=== PATIENT | female | born 1990 | race Native Hawaiian/Other Pacific Islander ===

== ENCOUNTER 2021-11-13 13:10 | Emergency (ER) | payer OTHER ==
[~2021-11-13] VITALS: Ht 154.9 cm; Wt 70.8 kg
[2021-11-13 13:18] VITALS: TEMP 99.4
[2021-11-13] MEDS ORDERED: KEPPRA750 MG PO (14:10)
[2021-11-13] MEDS ORDERED: PREDNISONE20 MG PO (14:10)
[2021-11-13 14:12] VITALS: BP 125/80
== END 2021-11-13 14:12 | disposition home or self-care (01) ==
LOC: ED 13:10
DX: R56.9 Unspecified convulsions (principal); S50.01XA Contusion of right elbow, initial encounter; W01.198A Fall on same level from slipping, tripping and stumbling with subsequent striking against other object, initial encounter; Y92.89 Other specified places as the place of occurrence of the external cause
CPT/HCPCS: 99282

== ENCOUNTER 2021-12-20 21:30 | Emergency (ER) | payer OTHER ==
[~2021-12-20] VITALS: Ht 157.5 cm; Wt 63.5 kg
[~2021-12-20 21:30] MED LIST: KEPPRA750 MG PO; PREDNISONE20 MG PO
[2021-12-20 22:32] LABS: POTASSIUM 3.6 mmol/L (3.6-5.2)
[2021-12-20 22:37] LABS: PLATELET COUNT 184 K/uL (152-353)
[2021-12-20 23:14] LABS: PARTIAL THROMBOPLASTIN TIME 20.3 SECONDS (24.5-33.6)
[2021-12-20 23:20] VITALS: BP 128/77; TEMP 97.8
== END 2021-12-20 23:20 | disposition home or self-care (01) ==
LOC: ED 21:30
PROVIDERS: Hospitalist
DX: R07.89 Other chest pain (principal); R09.1 Pleurisy
CPT/HCPCS: 36415; 80053; 82550; 83880; 84484; 85027; 85379; 85610; 85730; 93005; 96374; 96375; 99284; J1885; J2930